=== PATIENT | male | born 1980 | race Hispanic/Latino ===

== ENCOUNTER → 2019-06-09 | Day surgery (SDC) | payer BC ==
[~2019-06-09] MED LIST: CITALOPRAM HBR20 MG PO; LIDOCAINE HCL 2% LOCAL INJ 5 ML SDV VIAL INJ ONE; MIDAZOLAM HCL 2 MG/2 ML VIAL ONE; PROPOFOL IV EMULSION 10 MG/ML 20 ML VIAL ONE
--- OUTSIDE RECORDS SUMMARY | 2019-06-09 09:28 | XMS REPORT ---
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 Allergies, Adverse Reactions, Alerts Allergy Name Allergy Type Status Severity Reaction(s) Onset Date Inactive Date Treating Clinician Comments No Known Allergies DA Active U 2018-08-10 00:00:00 Medications This patient has no known medications.
[2019-06-09 12:15] VITALS: BP 103/82
== END | disposition home or self-care (01) ==
LOC: OR 09:26
PROVIDERS: ATTEND Internal Medicine
DX: K20.0 Eosinophilic esophagitis (principal); K29.50 Unspecified chronic gastritis without bleeding; B96.81 Helicobacter pylori [H. pylori] as the cause of diseases classified elsewhere; F41.9 Anxiety disorder, unspecified; F17.210 Nicotine dependence, cigarettes, uncomplicated
CPT/HCPCS: 43239; J2001; J2250; J2704